=== PATIENT | male | born 1980 ===

== ENCOUNTER → 2018-07-15 21:24 | Outpatient (REF) | payer OTHER, SELFPAY ==
[2018-07-18 06:58] LABS: RPR Screen Nonreactive (Nonreactive)
[2018-07-19 14:21] LABS: Rubeola Measles IgG > 300.00 AU/mL (< 25.00)
== END ==
LOC: LAB 21:24
PROVIDERS: Visit Provider Family Medicine
DX: Z11.1 Encounter for screening for respiratory tuberculosis (principal); Z11.3 Encounter for screening for infections with a predominantly sexual mode of transmission
CPT/HCPCS: 36415; 86480; 86592; 86735; 86762; 86765; 87591